=== PATIENT | female | born 1990 | race Caucasian/White ===

== ENCOUNTER 2017-07-31 12:43 | Emergency (ER) | payer OTHER ==
[~2017-07-31] VITALS: Ht 172.7 cm; Wt 68.0 kg
[2017-07-31 13:55] LABS: BILIRUBIN 1+ (NEGATIVE); BLOOD TRACE-INTACT (NEGATIVE); CLARITY SL CLOUDY (CLEAR); COLOR YELLOW (YELLOW); GLUCOSE NEGATIVE (NEGATIVE); KETONE TRACE (NEGATIVE); LEUKO ESTERASE NEGATIVE (NEGATIVE); NITRITE NEGATIVE (NEGATIVE); PH 5.5 (5.0-9.0); SPECIFIC GRAVITY >= 1.030 (1.005-1.030); UROBILINOGEN 0.2 E.U./dl (0.2-1.0)
[2017-07-31 14:13] LABS: BACTERIA TRACE; EPITHELIAL CELLS 21-30; MUCOUS 2+
[2017-07-31] MEDS ORDERED: FLAGYL500 MG PO (14:31)
== END 2017-07-31 14:38 | disposition home or self-care (01) ==
LOC: ED 12:43
PROVIDERS: Nurse Practitioner Family
DX: N76.0 Acute vaginitis (principal); B96.89 Other specified bacterial agents as the cause of diseases classified elsewhere; F17.200 Nicotine dependence, unspecified, uncomplicated; Z88.2 Allergy status to sulfonamides

== ENCOUNTER 2017-10-16 20:19 | Emergency (ER) | payer SELFPAY ==
[~2017-10-16] VITALS: Ht 172.7 cm; Wt 72.6 kg
[~2017-10-16 20:19] MED LIST: FLAGYL500 MG PO
[2017-10-16] MEDS ORDERED: CETIRIZINE10 MG PO (20:21)
[2017-10-16] MEDS ORDERED: BIRTH CONTROL PILL (20:21)
[2017-10-16] MEDS ORDERED: FLONASE ALLERG9.9 ML NAS (20:22)
== END 2017-10-16 22:10 | disposition home or self-care (01) ==
LOC: ED 20:19
DX: A08.4 Viral intestinal infection, unspecified (principal); F17.200 Nicotine dependence, unspecified, uncomplicated; Z79.899 Other long term (current) drug therapy; Z88.2 Allergy status to sulfonamides